=== PATIENT | male | born 1950 | race Caucasian/White ===

== ENCOUNTER 2018-04-02 10:27 | Emergency (ER) | payer MEDICARE ==
[~2018-04-02 10:27] MED LIST: ATOR40TA PO; AVOD0.5C PO; CIAL20TA PO; LEVO125T3 PO; LISI-360 PO; SCOP1PAT2 T-DERMAL; TAMS0.4C67 PO; VITA100018 PO
[2018-04-02 10:29] VITALS: BP 162/72; PULSE 75; RESP 18; TEMP 98.7; O2SAT 98
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
[2018-04-02 12:16] LABS: BACTERIA, URINE OCC /hpf; BILIRUBIN, URINE NEG (NEG); BLOOD, URINE LARGE (NEG); GLUCOSE,URINE NEG (NEG); KETONE, URINE NEG (NEG); MUCUS URINE FEW /lpf (OCC); NITRITE,URINE NEG (NEG); PH, URINE 6.5 (5.0-8.5); URINE COLOR YELLOW (YELLW/STRAW); URINE LEUKOCYTE ESTERASE SMALL (NEG)
[2018-04-02] MEDS ORDERED: SODIUM CHLOR 0.9% 1000 ML INJ 1,000 ML IV ONE (13:00)
[2018-04-02 13:14] LABS: AUTOMATED NEUTROPHIL # 6.7 TH/MM3 (1.8-7.7); BASOPHIL % 0.5 % (0.0-2.0); EOSINOPHIL # 0.1 TH/MM3 (0-0.4); EOSINOPHIL % 0.9 % (0.0-4.0); HEMATOCRIT 37.9 % (39.0-51.0); HEMOGLOBIN 13.1 GM/DL (13.0-17.0); LYMPH % 14.9 % (9.0-44.0); LYMPHOCYTE # 1.3 TH/MM3 (1.0-4.8); MEAN CELL VOLUME 87.2 FL (80.0-100.0); MEAN CORPUSCULAR HEMOGLOBIN 30.1 PG (27.0-34.0); MEAN CORPUSCULAR HGB CONC 34.5 % (32.0-36.0); MEAN PLATELET VOLUME 7.8 FL (7.0-11.0); MONO % 7.7 % (0.0-8.0); MONOCYTE # 0.7 TH/MM3 (0-0.9); PLATELET COUNT 213 TH/MM3 (150-450); RED BLOOD COUNT 4.35 MIL/MM3 (4.50-5.90); RED CELL DISTRIBUTION WIDTH 13.6 % (11.6-17.2); WHITE BLOOD COUNT 8.9 TH/MM3 (4.0-11.0)
[2018-04-02 13:38] LABS: BICARBONATE 28.7 MEQ/L (21.0-32.0); CREATININE 0.93 MG/DL (0.60-1.30)
[2018-04-02] MEDS ORDERED: OXYB5TAB8 PO (14:13)
[2018-04-02] MEDS ORDERED: CIPR-9 PO (14:13)
[2018-04-02] MEDS ORDERED: BELLADONNA ALKALOIDS/OPIUM 60 MG SUPP RECTAL ONE (14:15)
== END 2018-04-02 16:40 | disposition home or self-care (01) ==
LOC: NEPC 10:27
DX: N32.89 Other specified disorders of bladder (principal); E78.00 Pure hypercholesterolemia, unspecified; I10 Essential (primary) hypertension; K21.9 Gastro-esophageal reflux disease without esophagitis; Z46.6 Encounter for fitting and adjustment of urinary device; Z90.79 Acquired absence of other genital organ(s)
CPT/HCPCS: 51700; 80048; 81001; 85025; 96360; 99284; J7030